=== PATIENT | male | born 1985 | race Caucasian/White ===

== ENCOUNTER 2018-10-08 07:40 | Emergency (ER) | END 2018-10-08 11:11 | disposition home or self-care (01) ==

== ENCOUNTER 2019-02-24 14:56 | Emergency (ER) | payer MEDICAID, OTHER ==
[~2019-02-24] VITALS: Ht 185.4 cm; Wt 110.0 kg
[2019-02-24 15:23] VITALS: Ht 185.4 cm; Wt 110.0 kg
--- NOTE | 2019-02-24 18:09 | ERD ---
ER Documentation Chief Complaint Chief Complaint pt is bib self with c/o "blister " to left index finger x 2 days, "spider" HPI 33-year-old male, presents the emergency department, complaining of 2 days with a painful blister on the left index finger. He denies fever, no chills, the patient states that the symptoms started after an insect bite. ROS All systems reviewed and are negative except as per history of present illness. Medications Home Meds Active Scripts Ibuprofen* (Motrin*) 400 Mg Tab, 400 MG PO Q6H PRN for PAIN AND OR ELEVATED TEMP, #20 TAB Prov:SHAHANA SEAY MD 02/24/19 Bacitracin* (Bacitracin Zinc Oint*) 28.35 Gm Oint, 1 APPLIC TOP BID, #1 TUB APPLI TO Prov:SHAHANA SEAY MD 02/24/19 Cephalexin* (Keflex*) 500 Mg Capsule, 500 MG PO QID for 7 Days, CAP Prov:SHAHANA SEAY MD 02/24/19 Allergies Allergies: Coded Allergies: No Known Allergy (Unverified , 04/10/12) PMhx/Soc History of Surgery: Yes (HAND, PYLORIC STENOSIS) Anesthesia Reaction: No Hx Neurological Disorder: No Hx Respiratory Disorders: No Hx Cardiac Disorders: No Hx Psychiatric Problems: No Hx Miscellaneous Medical Probl: Yes (UNKNOWN) Hx Alcohol Use: Yes Hx Substance Use: Yes (ADMITS TO HERION USE) Hx Tobacco Use: Yes Smoking Status: Current every day smoker FmHx Family History: No diabetes, No coronary disease Physical Exam Vitals Vital Signs Date Temp Pulse Resp B/P (MAP) Pulse Ox O2 O2 Flow FiO2 Time Delivery Rate 02/24/19 98.3 84 16 138/82 98 15:23 (100) Physical Exam Const: No acute distress Head: Atraumatic Eyes: Normal Conjunctiva ENT: Normal External Ears, Nose and Mouth. Neck: Full range of motion. No meningismus. Resp: Clear to auscultation bilaterally Cardio: Regular rate and rhythm, no murmurs Abd: Soft, non tender, non distended. Normal bowel sounds Skin: Left index finger with 1 cm blister, no erythema, no warmth, no fluctuance, distal neurovascular exam intact. No petechiae or rashes Back: No midline or flank tenderness Ext: No cyanosis, or edema Neur: Awake and alert Psych: Normal Mood and Affect Procedures/MDM Differential diagnosis include but not limited to: Insect bite, traumatic injury, herpetic berry, dermoid cyst. Low suspicion for acute systemic inf ection. Physical examination and clinical presentation consistent most likely with skin infection of the left index finger During the ED course the patient remained stable, no new complaints. The procedure was explained and consent obtained. The area was cleaned with iodine. A sterile drape and prep were done. The fluctuant area around the nail, was excised with an 18-gauge needle obtaining moderate amount of pus, the area was expressed and irrigated with normal saline. Antibiotic ointment was applied. The patient tolerated the procedure well. The patient is stable to be treated outpatient and will be discharged home with a Rx for cephalexin and ibuprofen, some side effects of prescribed medications (headache, rash, nausea, vomiting, diarrhea, bleeding, hypertension, interactions with other medications) were reviewed. The patient was instructed to follow up with the primary care provider in the next 48h. If symptoms persist, worsen or new symptoms develop, then patient should return to the ED immediately. Instructions explained and given directly by me to the patient with acknowledgment and demonstrated understanding. Disclaimer: Inadvertent spelling and grammatical errors are likely due to EHR/dictation software use and do not reflect on the overall quality of patient care. Also, please note that the electronic time recorded on this note does not necessarily reflect the actual time of the patient encounter. Departure Diagnosis: Primary Impression: Skin infection, bacterial Condition: Stable Additional Instructions: Thank you very much for allowing us to participate in your care. Your health and safety is our top priority at [facility]. The evaluation in the emergency department has been done to rule out an acute emergency, therefore, chronic conditions like malignancy or other diseases have not been evaluated; therefore, you need to follow up with a primary care provider in the next 48h. If symptoms persist, worsen or new symptoms develop, then patient should return to the ED immediately. Call your primary care doctor TOMORROW for an appointment during the next 2-4 days and bring all the information provided. Have prescriptions filled and follow precisely the directions on the label. If the symptoms get worse and your provider is unavailable, return to the Emergency Department immediately. SHAHANA SEAY MD February 24, 2019 18:09
[2019-02-24] MEDS ORDERED: CEPH-443 PO (18:10)
[2019-02-24] MEDS ORDERED: BACI28.34 TOP (18:10)
[2019-02-24] MEDS ORDERED: IBUP-1561 PO (18:11)
[2019-02-24 18:27] VITALS: BP 128/69; PULSE 82; RESP 18
== END 2019-02-24 19:10 | disposition home or self-care (01) ==
LOC: FTE 14:56
DX: S60.421A Blister (nonthermal) of left index finger, initial encounter (principal); F17.210 Nicotine dependence, cigarettes, uncomplicated; A49.9 Bacterial infection, unspecified; W57.XXXA Bitten or stung by nonvenomous insect and other nonvenomous arthropods, initial encounter; Y92.9 Unspecified place or not applicable

== ENCOUNTER 2019-08-29 16:47 | Emergency (ER) | payer OTHER ==
[~2019-08-29] VITALS: Ht 188 cm; Wt 99.0 kg
[~2019-08-29 16:47] MED LIST: BACI28.34 TOP; CEPH-443 PO; IBUP-1542 PO; IBUP-1561 PO
[2019-08-29 16:51] VITALS: Ht 188 cm; Wt 99.0 kg
[2019-08-29] MEDS ORDERED: MECLIZINE 12.5 MG TAB PO ONE (18:00)
[2019-08-29] MEDS ORDERED: IBUPROFEN 800 MG TAB PO ONE (18:00)
[2019-08-29 19:27] VITALS: BP 126/74; PULSE 74; RESP 16
== END 2019-08-29 19:28 | disposition home or self-care (01) ==
LOC: E/R 16:47
DX: S06.0X0A Concussion without loss of consciousness, initial encounter (principal); F17.210 Nicotine dependence, cigarettes, uncomplicated; S69.92XA Unspecified injury of left wrist, hand and finger(s), initial encounter; R40.2412 Glasgow coma scale score 13-15, at arrival to emergency department; S80.811A Abrasion, right lower leg, initial encounter; S80.812A Abrasion, left lower leg, initial encounter; Y09 Assault by unspecified means
CPT/HCPCS: 70450; 72125